=== PATIENT | female | born 1945 | race Two or more races ===

== ENCOUNTER 2024-12-06 03:55 | Emergency (ER) | payer MEDICARE, OTHER ==
[~2024-12-06] VITALS: Ht 152.4 cm; Wt 70.4 kg
[2024-12-06] MEDS: diphenhdrAMINE HCL 50 MG/1 ML VL IM ONE (04:33)
[2024-12-06] MEDS: FAMOTIDINE 20 MG TAB PO ONE (04:34)
[2024-12-06] MEDS ORDERED: FAMO20TA10 PO (05:04)
[2024-12-06] MEDS ORDERED: METH4PAK PO (05:04)
--- NOTE | 2024-12-06 05:04 | ED.PDOC ---
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 History Family History Family History: Reviewed,noncontributory to illness Social History Smoker: Non-Smoker Alcohol: Denies ETOH Use Drugs: Denies Drug Use All Other Systems: Reviewed and Negative (see hpi) Physical Exam General Appearance: No Apparent Distress, Normal HEENT: Normal ENT Inspection, Pharynx Normal, TMs Normal Neck: Full Range of Motion, Non-Tender, Normal, Normal Inspection Respiratory: Chest Non-Tender, Lungs Clear, No Accessory Muscle Use, No Respiratory Distress, Normal Breath Sounds Cardiovascular: No Edema, No JVD, No Murmur, No Gallop, Normal Peripheral Pulses, Regular Rate/Rhythm Breast Exam: Deferred Gastrointestinal: No Organomegaly, Non Tender, No Pulsatile Mass, Normal Bowel Sounds, Soft Genitalia: Deferred Pelvic: Deferred Rectal: Deferred Extremities: No calf tenderness, Normal capillary refill, Normal inspection, Normal range of motion, Non-tender, No pedal edema Musculoskeletal : Apperance: Normal Neurologic: Alert, concaver II-XII nml as Tested, No Motor Deficits, Normal Affect, Normal Mood, No Sensory Deficits Cerebellar Function: Normal Reflexes: Normal Skin: Dry, Normal Color, Warm Lymphatic: No Adenopathy Was a procedure done? Was a procedure done?: No Differential diagnosis (all) Differential Diagnosis: Anaphylaxis, Angioedema, Drug Reaction, Shock, Urticaria X-Ray, Labs, Meds, VS Vital Signs Date Time Temp Pulse Resp B/P (MAP) Pulse Ox O2 Delivery O2 Flow Rate FiO2 12/06/24 04:10 97.4 63 18 155/60 93 97.4 Current Medications Medications (Trade) Dose Ordered Sig/Aneta Route Start Time Stop Time Status Last Admin Dexamethasone Sodium Phosphate (Decadron Injection) 10 mg ONCE ONCE IM 12/06/24 04:15 12/06/24 04:16 DC 12/06/24 04:34 Famotidine (Pepcid Tablet) 40 mg ONCE ONCE PO 12/06/24 04:15 12/06/24 04:16 DC 12/06/24 04:34 Diphenhydramine HCl (Benadryl Injection) 25 mg ONCE ONCE IM 12/06/24 04:15 12/06/24 04:16 DC 12/06/24 04:33 Time of 1ST Reevaluation: 04:15 Reevaluation 1ST: Unchanged Time of 2ND Reevaluation: 05:01 Reevaluation 2ND: Improved Patient Education/Counseling: Diagnosis, Treatment, Prognosis, Need For Follow Up Family Education/Counseling: Diagnosis, Treatment, Prognosis, Need For Follow Up SEPSIS Sepsis Screen Date sepsis recognized/suspect: Dec 06, 2024 Time Sepsis recognized/suspect: 413 Recent Procedure: No On Antibiotic Therapy: No Respiratory Rate >20: No Heart Rate >90: No Temp<36 C (96.8 F) or >38.3 C: No SBP <90 or MAP <65 mmHG: No New Acute Mental Status Change: No Is the patient on CPAP, BIPAP,: No Vital Signs Date Time Temp Pulse Resp B/P (MAP) Pulse Ox O2 Delivery O2 Flow Rate FiO2 12/06/24 04:10 97.4 63 18 155/60 93 97.4 Medications Medications Dose Ordered Sig/Aneta Route Start Time Stop Time Status Last Admin Dose Admin Dexamethasone Sodium Phosphate 10 mg ONCE ONCE IM 12/06/24 04:15 12/06/24 04:16 DC 12/06/24 04:34 Diphenhydramine HCl 25 mg ONCE ONCE IM 12/06/24 04:15 12/06/24 04:16 DC 12/06/24 04:33 Famotidine 40 mg ONCE ONCE PO 12/06/24 04:15 12/06/24 04:16 DC 12/06/24 04:34 Departure 1 Departure Time of Disposition: 05:03 Impression: Primary Impression: Allergic reaction Qualified Codes: T78.40XA - Allergy, unspecified, initial encounter Disposition: HOME / SELF CARE / HOMELESS Condition: Stable e-Prescriptions Famotidine (PEPCID TABLET) 20 Mg Tb 1 TAB PO BID for 6 Days, #12 TAB Prov: ROSA PERLA 12/06/24 Methylprednisolone (Medrol Dosepak) 4 Mg [place] 4 MG PO UD for 6 Days, #21 TAB UAD Prov: ROSA PERLA 12/06/24 Discharged With: Spouse Critical Care Note Critical Care Time?: No Stability Stability form required: No ROSA PERLAP Dec 06, 2024 05:04
[2024-12-06 05:42] VITALS: BP 132/50; PULSE 52; RESP 17; TEMP 97.8; O2SAT 97
== END 2024-12-06 05:42 | disposition home or self-care (01) ==
LOC: ER 03:59
DX: T78.40XA Allergy, unspecified, initial encounter (principal); Z88.6 Allergy status to analgesic agent; X58.XXXA Exposure to other specified factors, initial encounter
CPT/HCPCS: 96372; 99284; J1100; J1200